=== PATIENT | male | born 1985 | race African-American/Black ===

== ENCOUNTER 2017-10-12 20:05 | Emergency (ER) | payer OTHER ==
[2017-10-12 20:33] VITALS: BP 144/90
[2017-10-12] MEDS ORDERED: KETOROLAC TROMETHAMINE 60 MG/2 ML SDV IM ONE (20:41)
--- NOTE | 2017-10-12 20:49 | ER Document Report ---
ED Medical Screen (RME) - General Chief Complaint: Shoulder Injury Stated Complaint: RIGHT SHOULDER INJURY Time Seen by Provider: 10/12/17 20:41 Mode of Arrival: Ambulatory Information source: Patient Notes: This is a 32-year-old man with no significant medical problems who presents with right shoulder pain. Patient states he was in the yard doing yard work for a couple of hours. He denies falling or injuring himself in any way. He finished up the yard work and took a shower and started developing right shoulder pain. He now presents with significant right shoulder pain with motion. Medicines: None Past medical history: None Past surgical history: Left lower extremity fasciotomy (when he was in the [employer], exercise-induced). TRAVEL OUTSIDE OF THE [place] IN LAST 30 DAYS: No - HPI Onset: Just prior to arrival Onset/Duration: Gradual Quality of pain: Dull Severity: Moderate Pain Level: 4 Associated Symptoms: denies: Chest pain, Shortness of breath Exacerbated by: Movement Relieved by: Remaining still Similar symptoms previously: No Recently seen / treated by doctor: No - Related Data Smoking: Non-smoker Frequency of alcohol use: None Drug Abuse: None Allergies/Adverse Reactions: No Known Allergies Allergy (Verified 10/12/17 20:37) Past Medical History - General Information source: Patient - Social History Cigarette use (# per day): No Chew tobacco use (# tins/day): No Frequency of alcohol use: None Drug Abuse: None Lives with: Family Family history: None - Medical History Medical History: Negative Renal/ Medical History: Denies: Hx Peritoneal Dialysis Past Surgical History: Reports: Hx Orthopedic Surgery Review of Systems - Review of Systems Constitutional: denies: Chills, Fever EENT: No symptoms reported Cardiovascular: No symptoms reported Respiratory: No symptoms reported Gastrointestinal: No symptoms reported Genitourinary: No symptoms reported Male Genitourinary: No symptoms reported Musculoskeletal: See HPI Skin: No symptoms reported Hematologic/Lymphatic: No symptoms reported Neurological/Psychological: No symptoms reported Physical Exam - Vital signs Vitals: Temp Pulse Resp BP Pulse Ox 98.6 F 92 18 144/90 H 97 10/12/17 20:30 10/12/17 20:30 10/12/17 20:30 10/12/17 20:30 10/12/17 20:30 Notes: Physical exam: GENERAL: 32-year-old man, alert and oriented 3, no acute distress HEAD: Atraumatic, normocephalic. EYES: Pupils equal round and reactive to light, extraocular movements intact, sclera anicteric, conjunctiva are normal. ENT: Moist mucous membranes. NECK: Normal range of motion, supple EXTREMITIES: Right shoulder: He has tenderness to touch over the biceps insertion and the AC joint. He has significant tenderness with range of motion. He has no deformity or anatomical defect to suggest dislocation. Distal arm is nontender. Elbow has full range of motion and is nontender. Forearm is nontender. Full range of motion at the right wrist. Good pulse at the wrist. No tenderness with flexion extension of the fingers. Good sensation over the deltoid, thenar eminence, dorsal first webspace of the hand, and fifth finger. NEUROLOGICAL: Cranial nerves II through XII grossly intact. Normal speech, moving all extremities. PSYCH: Normal mood, normal affect. SKIN: Warm, Dry, normal turgor, no rashes or lesions noted. Course - Vital Signs Vital signs: Temp Pulse Resp BP Pulse Ox 98.6 F 92 18 144/90 H 97 10/12/17 20:30 10/12/17 20:30 10/12/17 20:30 10/12/17 20:30 10/12/17 20:30 - Diagnostic Test Radiology reviewed: Image reviewed, Reports reviewed - X-rays show no bony injury, no dislocation Doctor's Discharge - Discharge Clinical Impression: Right shoulder tendinitis Condition: Stable Disposition: HOME, SELF-CARE Additional Instructions: As we discussed the x-rays look good. Ice it for the next 2 days several times a day for 15-20 minutes at a time. Take ibuprofen every 6 hours for pain. If the ibuprofen is not doing it, then go to the Medrol Dosepak. Weight if you do start taking the Medrol Dosepak, do not take the ibuprofen (both are strong on your stomach). Follow-up with the orthopedic doctor, return to the ER for any problems. Prescriptions: Methylprednisolone [Medrol 4 mg Dosepack 21 Tab/Pack] 4 mg PO ASDIR PRN #[id number] PRN Reason: Referrals: DARRYL WEBER, DO [ACTIVE STAFF] - Follow up as needed (This is the number the orthopedic doctor)
--- NOTE | 2017-10-12 21:01 | RADIOLOGY REPORT (SQ) ---
EXAM DESCRIPTION: SHOULDER RIGHT 2 OR MORE VIEWS COMPLETED DATE/TIME: 10/12/2017 8:51 pm REASON FOR STUDY: right shoulder pain COMPARISON: None. NUMBER OF VIEWS: Three views. TECHNIQUE: Internal rotation, external rotation, and Y view images acquired of the right shoulder. LIMITATIONS: None. FINDINGS: MINERALIZATION: Normal. BONES: No acute fracture or dislocation. No worrisome bone lesions. JOINTS: No dislocation. VISUALIZED LUNGS AND RIBS: No pneumothorax. No rib fracture. SOFT TISSUES: No radiopaque foreign body. OTHER: No other significant finding. IMPRESSION: NEGATIVE STUDY OF THE RIGHT SHOULDER. NO RADIOGRAPHIC EVIDENCE OF ACUTE INJURY. TECHNICAL DOCUMENTATION: JOB ID: [id number] [employer]- All Rights Reserved
== END 2017-10-12 21:01 | disposition home or self-care (01) ==
LOC: ER 20:05
DX: M75.91 Shoulder lesion, unspecified, right shoulder (principal); M25.511 Pain in right shoulder
CPT/HCPCS: 99283; 96372; 73030; J1885

== ENCOUNTER 2019-02-19 15:45 | Emergency (ER) | payer OTHER, MEDICAID ==
[2019-02-19] MEDS ORDERED: NORMAL SALINE 1000 ML 1,000 ML IV ONE (16:20)
--- NOTE | 2019-02-19 16:21 | ER Document Report ---
ED Medical Screen (RME) - General Chief Complaint: Abdominal Pain Stated Complaint: ABDOMINAL PAIN Time Seen by Provider: 02/19/19 16:17 Mode of Arrival: Ambulatory Information source: Patient Notes: Patient presents complaining of right-sided abdominal pain for the past 3 days. Pain initially was off and on but has become constant. Patient denies any nausea or vomiting but does report diarrhea x3 episodes. Patient denies any fever or urinary symptoms. I have greeted and performed a rapid initial assessment of this patient. A comprehensive ED assessment and evaluation of the patient, analysis of test results and completion of the medical decision making process will be conducted by additional ED providers. TRAVEL OUTSIDE OF THE [place] IN LAST 30 DAYS: No - Related Data Allergies/Adverse Reactions: No Known Allergies Allergy (Verified 10/12/17 20:37) Past Medical History - Social History Family history: None Renal/ Medical History: Denies: Hx Peritoneal Dialysis Past Surgical History: Reports: Hx Orthopedic Surgery Physical Exam - Vital signs Vitals: Temp Pulse Resp BP Pulse Ox 98.8 F 80 18 157/95 H 100 02/19/19 16:19 02/19/19 16:19 02/19/19 16:19 02/19/19 16:19 02/19/19 16:19 - General Notes: Patient with tenderness to right side of the abdomen. More tender to the right upper quadrant at this time. Course - Vital Signs Vital signs: Temp Pulse Resp BP Pulse Ox 98.8 F 80 18 157/95 H 100 02/19/19 16:19 02/19/19 16:19 02/19/19 16:19 02/19/19 16:19 02/19/19 16:19
--- NOTE | 2019-02-19 17:54 | RADIOLOGY REPORT (SQ) ---
EXAM DESCRIPTION: U/S ABDOMEN LIMITED W/O DOP COMPLETED DATE/TIME: 02/19/2019 5:32 pm REASON FOR STUDY: RUQ pain COMPARISON: None. TECHNIQUE: Dynamic and static grayscale images acquired of the abdomen and recorded on PACS. Criso madison selected color Doppler and spectral images recorded. LIMITATIONS: None. FINDINGS: PANCREAS: No masses. Visualized pancreatic duct normal caliber. LIVER: No masses. Echotexture normal. LIVER VASCULATURE: Normal directional flow of the main portal vein and hepatic veins. GALLBLADDER: No stones. Normal wall thickness. No pericholecystic fluid. ULTRASOUND-DETECTED WATSON'S SIGN: Negative. INTRAHEPATIC DUCTS AND COMMON DUCT: CBD and intrahepatic ducts normal caliber. No filling defects. INFERIOR VENA CAVA: Normal flow. AORTA: No aneurysm. RIGHT KIDNEY: Normal size. Normal echogenicity. No solid or suspicious masses. No hydronephrosis. No calcifications. PERITONEAL AND RIGHT PLEURAL SPACE: No ascites or effusions. OTHER: No other significant findings. IMPRESSION: NORMAL RIGHT UPPER QUADRANT ULTRASOUND. TECHNICAL DOCUMENTATION: JOB ID: [id number] [employer]- All Rights Reserved Reading location - IP/workstation name: [email or web address]
[2019-02-19 18:05] LABS: ABSOLUTE EOSINOPHILS # (AUTO) 0.1 10^3/uL (0.0-0.6); ABSOLUTE LYMPHOCYTES (AUTO) 1.4 10^3/uL (0.5-4.7); ABSOLUTE MONOCYTES (AUTO) 0.5 10^3/uL (0.1-1.4); ABSOLUTE NEUT (AUTO) 1.9 10^3/uL (1.7-8.2); BASOPHILS % (AUTO) 0.3 % (0-2); EOSINOPHILS % (AUTO) 1.9 % (0-6); HEMATOCRIT 44.4 % (37.9-51.0); LYMPHOCYTES % (AUTO) 34.8 % (13-45); MEAN CORPUSCULAR HEMOGLOBIN 28.1 pg (27.0-33.4); MEAN CORPUSCULAR HGB CONC 33.8 g/dL (32.0-36.0); MEAN CORPUSCULAR VOLUME 83 fl (80-97); MONOCYTES % (AUTO) 13.7 % (3-13); PLATELET COUNT 253 10^3/uL (150-450); RED BLOOD COUNT 5.34 10^6/uL (4.35-5.55); RED CELL DISTRIBUTION WIDTH 13.6 % (11.5-14.0); SEGMENTED NEUTROPHILS % (AUTO) 49.3 % (42-78); TOTAL CELLS COUNTED % (AUTO) 100 %; WHITE BLOOD COUNT 3.9 10^3/uL (4.0-10.5)
[2019-02-19 18:15] LABS: AMORPHOUS SEDIMENT,URINE 1+ /HPF; APPEARANCE,URINE TURBID; BILIRUBIN,URINE NEGATIVE (NEGATIVE); COLOR,URINE COLORLESS; GLUCOSE, URINE NEGATIVE (NEGATIVE); KETONES,URINE NEGATIVE (NEGATIVE); LEUKOCYTE ESTERASE,URINE NEGATIVE (NEGATIVE); NITRITE,URINE NEGATIVE (NEGATIVE); PROTEIN,URINE NEGATIVE (NEGATIVE); URINE SPECIFIC GRAVITY 1.026; UROBILINOGEN,URINE NEGATIVE mg/dL (<2.0)
[2019-02-19 18:28] LABS: ALANINE AMINOTRANSFERASE 23 U/L (21-72); ALBUMIN 4.9 g/dL (3.5-5.0); ALKALINE PHOSPHATASE 102 U/L (38-126); ANION GAP 11 (5-19); ASPARTATE AMINO TRANSFERASE 19 U/L (17-59); BILIRUBIN,DIRECT 0.3 mg/dL (0.0-0.4); BILIRUBIN,TOTAL 0.8 mg/dL (0.2-1.3); BLOOD UREA NITROGEN 12 mg/dL (7-20); CALCIUM 10.1 mg/dL (8.4-10.2); CARBON DIOXIDE 28 mmol/L (22-30); CHLORIDE 102 mmol/L (98-107); GLUCOSE 86 mg/dL (75-110); POTASSIUM 4.5 mmol/L (3.6-5.0); SODIUM 140.5 mmol/L (137-145); TOTAL PROTEIN 8.2 g/dL (6.3-8.2)
--- NOTE | 2019-02-19 20:01 | RADIOLOGY REPORT (SQ) ---
EXAM DESCRIPTION: CT ABD/PELVIS WITH IV ONLY COMPLETED DATE/TIME: 02/19/2019 7:50 pm REASON FOR STUDY: RLQ pain COMPARISON: None. TECHNIQUE: CT scan of the abdomen and pelvis performed using helical scanning technique with dynamic intravenous contrast injection. No oral contrast. Images reviewed with lung, soft tissue, and bone windows. Reconstructed coronal and sagittal MPR images reviewed. Delayed images for evaluation of the urinary system also acquired. All images stored on PACS. All CT scanners at this facility use dose modulation, iterative reconstruction, and/or weight based d osing when appropriate to reduce radiation dose to as low as reasonably achievable (ALARA). [facility]: Dose Right [facility]: CareDose [facility]: Dose Right [facility]: Teradose 4D [facility]: Premonix CONTRAST TYPE AND DOSE: contrast/concentration: Isovue 350.00 mg/ml; Total Contrast Delivered: 100.0 ml; Total Saline Delivered: 72.0 ml RENAL FUNCTION: BUN 12; creatinine 1.14 RADIATION DOSE: CT Rad equipment meets quality standard of care and radiation dose reduction techniq ues were employed. CTDIvol: 9.6 - 14.0 mGy. DLP: 1249 mGy-cm.. LIMITATIONS: None. FINDINGS: LOWER CHEST: No significant findings. No nodules or infiltrates. LIVER: Normal size. No masses. No dilated ducts. SPLEEN: Normal size. No focal lesions. PANCREAS: No masses. No significant calcifications. No adjacent inflammation or peripancreatic fluid collections. Pancreatic duct not dilated. GALLBLADDER: No identified stones by CT criteria. No inflammatory changes to suggest cholecystitis. ADRENAL GLANDS: No significant masses or asymmetry. RIGHT KIDNEY AND URETER: No solid masses. No significant calcifications. No hydronephrosis or hyd roureter. LEFT KIDNEY AND URETER: No solid masses. No significant calcifications. No hydronephrosis or hydr oureter. AORTA AND VESSELS: No aneurysm. No dissection. Renal arteries, SMA, celiac without stenosis. RETROPERITONEUM: No retroperitoneal adenopathy, hemorrhage or masses. BOWEL AND PERITONEAL CAVITY: No masses or inflammatory changes. No free fluid or peritoneal masses. APPENDIX: Normal. PELVIS: No mass. No free fluid. Normal bladder. ABDOMINAL WALL: Tiny fat containing umbilical hernia. BONES: No significant or acute findings. OTHER: No other significant finding. IMPRESSION: NO SIGNIFICANT OR ACUTE FINDING IN THE ABDOMEN OR PELVIS ON CT SCAN WITH IV CONTRAST. TECHNICAL DOCUMENTATION: JOB ID: [id number] Quality ID # [id number]: Final reports with documentation of one or more dose reduction techniques (e.g., Au tomated exposure control, adjustment of the mA and/or kV according to patient size, use of iterative reconstruction technique) 2010 [employer]- All Rights Reserved Reading location - IP/workstation name: [email or web address]
--- NOTE | 2019-02-19 20:10 | ER Document Report ---
ED General - General Chief Complaint: Abdominal Pain Stated Complaint: ABDOMINAL PAIN Time Seen by Provider: 02/19/19 16:17 Primary Care Provider: CHICO,LUIS [Primary Care Provider] - Follow up as needed Mode of Arrival: Ambulatory Notes: Patient is otherwise healthy 33-year-old male presents to the emergency department with generalized abdominal pain, diarrhea for the last 3 days. Patient states he has had upwards of 7 episodes of diarrhea every day for the last 3 days. Still denying any nausea or vomiting. States he has generalized right-sided abdominal pain. Patient is denying any dysuria, lower back pain, history of kidney stones, penile discharge. Patient is denying any abdominal surgeries. TRAVEL OUTSIDE OF THE [place] IN LAST 30 DAYS: No - Related Data Allergies/Adverse Reactions: No Known Allergies Allergy (Verified 10/12/17 20:37) Past Medical History - General Information source: Patient - Social History Smoking Status: Current Every Day Smoker Frequency of alcohol use: Occasional Drug Abuse: None Family History: Reviewed & Not Pertinent Patient has suicidal ideation: No Patient has homicidal ideation: No Neurological Medical History: Reports: Hx Migraine Renal/ Medical History: Denies: Hx Peritoneal Dialysis Past Surgical History: Reports: Hx Orthopedic Surgery Review of Systems - Review of Systems Constitutional: denies: Fever EENT: No symptoms reported Cardiovascular: No symptoms reported Respiratory: No symptoms reported Gastrointestinal: See HPI Genitourinary: See HPI Male Genitourinary: See HPI Musculoskeletal: No symptoms reported Skin: No symptoms reported Hematologic/Lymphatic: No symptoms reported Neurological/Psychological: No symptoms reported Physical Exam - Vital signs Vitals: Temp Pulse Resp BP Pulse Ox 98.8 F 80 18 157/95 H 100 02/19/19 16:19 02/19/19 16:19 02/19/19 16:19 02/19/19 16:19 02/19/19 16:19 - Notes Notes: GENERAL: Alert, interacts well. No acute distress. HEAD: Normocephalic, atraumatic. EYES: Pupils equal, round, and reactive to light. Extraocular movements intact. ENT: Oral mucosa moist, tongue midline. NECK: Full range of motion. Supple. Trachea midline. LUNGS: Clear to auscultation bilaterally, no wheezes, rales, or rhonchi. No respiratory distress. HEART: Regular rate and rhythm. No murmur ABDOMEN: Soft, positive McBurney's point tenderness. Non-distended. Bowel sounds present in all 4 quadrants. No Mills sign noted, no left upper quadrant pain, no left lower quadrant pain noted. EXTREMITIES: Moves all 4 extremities spontaneously. No edema, normal radial and dorsalis pedis pulses bilaterally. No cyanosis. BACK: no cervical, thoracic, lumbar midline tenderness. No saddle anesthesia, normal distal neurovascular exam. No CVA pain noted bilaterally. NEUROLOGICAL: Alert and oriented x3. Normal speech. cranial nerves II through XII grossly intact PSYCH: Normal affect, normal mood. SKIN: Warm, dry, normal turgor. No rashes or lesions noted. Course - Re-evaluation Re-evalutation: 02/19/19 20:07 Laboratory 02/19/19 02/19/19 02/19/19 16:29 17:51 17:51 WBC 3.9 L RBC 5.34 Hgb 15.0 Hct 44.4 MCV 83 MCH 28.1 MCHC 33.8 RDW 13.6 Plt Count 253 Seg Neutrophils % 49.3 Lymphocytes % 34.8 Monocytes % 13.7 H Eosinophils % 1.9 Basophils % 0.3 Absolute Neutrophils 1.9 Absolute Lymphocytes 1.4 Absolute Monocytes 0.5 Absolute Eosinophils 0.1 Absolute Basophils 0.0 Sodium 140.5 Potassium 4.5 Chloride 102 Carbon Dioxide 28 Anion Gap 11 BUN 12 Creatinine 1.14 Est GFR ( Amer) > 60 Est GFR (Non-Af Amer) > 60 Glucose 86 Calcium 10.1 Total Bilirubin 0.8 Direct Bilirubin 0.3 Neonat Total Bilirubin Not Reportable Neonat Direct Bilirubin Not Reportable Neonat Indirect Bili Not Reportable AST 19 ALT 23 Alkaline Phosphatase 102 Total Protein 8.2 Albumin 4.9 Lipase 141.0 Urine Color COLORLESS Urine Appearance TURBID Urine pH 5.0 Ur Specific [place] 1.026 Urine Protein NEGATIVE Urine Glucose (UA) NEGATIVE Urine Ketones NEGATIVE Urine Blood MODERATE H Urine Nitrite NEGATIVE Urine Bilirubin NEGATIVE Urine Urobilinogen NEGATIVE Ur Leukocyte Esterase NEGATIVE Amorphous Sediment Auto 1+ Urine Mucus (Auto) OCC Urine Ascorbic Acid NEGATIVE Initial labs ordered by E provider. Ultrasound right upper quadrant also ordered. It was noted that patient had right upper quadrant pain at that time. Discussed ultrasound results with patient at bedside. Ultrasound negative for cholecystitis. Upon my examination physical exam it appears patient has generalized right lower quadrant pain. I discussed use of CT imaging of following up with primary care provider for close return precautions and repeat abdominal examinations. Patient wishes to follow through the CT in the emergency room. Abdomen Ultrasound 02/19/19 16:20 IMPRESSION: NORMAL RIGHT UPPER QUADRANT ULTRASOUND. Abdomen/Pelvis CT 02/19/19 18:47 IMPRESSION: NO SIGNIFICANT OR ACUTE FINDING IN THE ABDOMEN OR PELVIS ON CT SCAN WITH IV CONTRAST. CT shows no signs of appendicitis. I discussed this at length with patient at bedside. I discussed likely viral diagnosis of diarrhea. I also discussed giving a stool sample. Patient states he has been unable to have any episodes of diarrhea in the emergency department. Patient was also declining any pain management at this time. States he is driving and would rather "suck it up." Patient continues to be hemodynamically stable, discussed close follow-up with primary care provider with close return precautions. Patient stable for discharge. - Vital Signs Vital signs: Temp Pulse Resp BP Pulse Ox 98.8 F 80 18 157/95 H 100 02/19/19 16:19 02/19/19 16:19 02/19/19 16:19 02/19/19 16:19 02/19/19 16:19 - Laboratory Result Diagrams: 02/19/19 17:51 02/19/19 17:51 Laboratory results interpreted by me: 02/19/19 02/19/19 16:29 17:51 WBC 3.9 L Monocytes % 13.7 H Urine Blood MODERATE H Discharge - Discharge Clinical Impression: Diarrhea Qualifiers: Diarrhea type: unspecified type Qualified Code(s): R19.7 - Diarrhea, unspecified Abdominal pain Qualifiers: Abdominal location: right lower quadrant Qualified Code(s): R10.31 - Right lower quadrant pain Condition: Stable Disposition: HOME, SELF-CARE Instructions: Abdominal Pain ([facility]), Diarrhea, Nonspecific ([facility]) Additional Instructions: As we discussed you have been seen and treated in the emergency department for your right lower quadrant abdominal pain and your diarrhea. Your labs revealed no signs of electrolyte abnormalities. Also showed no signs of overwhelming infection. Your CT image also shows no signs of appendicitis or gallbladder disease. Please make sure you follow-up with your primary care provider for continued care. Please stay well-hydrated and return to the emergency room for any concerns. Forms: Return to Work Referrals: [facility] [Primary Care Provider] - Follow up as needed
[2019-02-19 20:11] VITALS: BP 165/95
== END 2019-02-19 20:15 | disposition home or self-care (01) ==
LOC: ER 15:45
DX: R19.7 Diarrhea, unspecified (principal); R10.31 Right lower quadrant pain; R10.84 Generalized abdominal pain; F17.200 Nicotine dependence, unspecified, uncomplicated
CPT/HCPCS: 99284; 96360; 36415; 83690; 85025; 80053; 81001; 76705; 74177; J7030